=== PATIENT | female | born 1995 | race Caucasian/White ===

== ENCOUNTER 2020-10-28 19:56 | Emergency (ER) | payer OTHER ==
[~2020-10-28] VITALS: Ht 152.4 cm; Wt 46.6 kg
[2020-10-28 20:28] LABS: BASOPHILS % (AUTO) 0 % (0-1); EOSINOPHILS % (AUTO) 2 % (1-7); LYMPHOCYTES % (AUTO) 31 % (22-44); MEAN CORPUSCULAR HEMOGLOBIN 22.3 pg (27.0-34.8); MEAN CORPUSCULAR HGB CONC 30.8 g/dL (32.4-35.8); MEAN PLATELET VOLUME 7.3 fL (7.4-10.4); MONOCYTES % (AUTO) 13 % (2-9); NEUTROPHILS % (AUTO) 55 % (42-75); PLATELET COUNT 404 x10^3/uL (130-400); RED BLOOD COUNT 5.12 x10^6/uL (3.82-5.3); RED CELL DISTRIBUTION WIDTH 21.6 % (9.6-15.2)
[2020-10-28 20:32] LABS: MD NO
[2020-10-28 20:40] LABS: ALBUMIN 2.4 g/dL (3.4-5.0); ANION GAP 5 mmol/L (5-15); CHLORIDE 106 mmol/L (98-107); CREATININE 0.59 mg/dL (0.55-1.02)
[2020-10-28 21:50] VITALS: BP_DIAS 66
--- NOTE | 2020-10-28 21:55 | NUR ---
POOR APPETITE, WEAK, SOB WITH EXERTION, PALPITATIONS X 2 MONTHS NO FEVERS, ACUTE PAIN, MUSCLE ACHES HAS BEEN STRICT VEGAN LATELY PLACED ON CHURCH WARDEN ECG OBTAINED CLEAN CATCH UA OBTAINED PATIENT/SIGNIFICANT OTHER UPDATED ON ESTIMATED POC
[2020-10-28 22:33] LABS: MICROSCOPIC INDICATED
[2020-10-28 22:58] VITALS: BP_SYST 128
== END 2020-10-28 23:00 | disposition home or self-care (01) ==
LOC: ED 22:15
DX: D50.0 Iron deficiency anemia secondary to blood loss (chronic) (principal); R53.1 Weakness; R42 Dizziness and giddiness
CPT/HCPCS: 36415; 80048; 81001; 82040; 84703; 85025; 87086; 93005; 99284